=== PATIENT | female | born 1975 | race Caucasian/White ===

== ENCOUNTER 2025-02-13 10:23 | Emergency (ER) | payer OTHER ==
[~2025-02-13] VITALS: Ht 170.2 cm; Wt 59.0 kg
[2025-02-13 10:26] VITALS: O2SAT 98
[2025-02-13] MEDS: ACETAMINOPHEN 1000MG/100ML 100 ML IV ONE (11:45)
[2025-02-13] MEDS: LACTATED RINGERS 1,000 ML IV SCH (11:45)
[2025-02-13] MEDS: ONDANSETRON HCL 4MG/2ML INJ IV ONE (11:45)
[2025-02-13 12:08] LABS: HEMATOCRIT. 42.9 % (36.0-48.0); HEMOGLOBIN. 14.0 g/dL (12.0-16.0); MEAN PLATELET VOLUME 8.3 fl (7.4-10.4); PLATELET 267 x1000/uL (130-400); RED BLOOD CELL COUNT 5.15 mill/uL (4.2-5.4); RED CELL DISTRIBUTION WIDTH 14.1 % (11.6-14.6)
[2025-02-13 12:20] LABS: HCG SCREEN NEGATIVE
[2025-02-13 12:51] LABS: CREATININE 0.8 mg/dL (0.6-1.0); UREA NITROGEN BLOOD 10 mg/dL (9-23)
[2025-02-13 12:52] LABS: PROTEIN TOTAL 7.2 g/dL (6.0-8.3)
[2025-02-13 12:53] LABS: ASPARTATE AMINOTRANSFERASE 33 IU/L (<34); BILIRUBIN DIRECT 0.3 mg/dL (<=3.0); BILIRUBIN TOTAL 1.5 mg/dL (0.1-1.0)
[2025-02-13 13:32] LABS: BAND% 2.0 % (1.0-6.0); LYMPHOCYTES % MANUAL 2.0 % (20.0-60.0); MONOCYTES % MANUAL 4.0 % (2.0-8.0); NEUTROPHILS % MANUAL 92.0 % (45.0-75.0); PLATELET ESTIMATE NORMAL
[2025-02-13] MEDS ORDERED: ONDA-239 PO (14:34)
[2025-02-13 14:50] VITALS: BP 132/74; PULSE 98; RESP 18; TEMP 37.1; O2SAT 98
== END 2025-02-13 15:02 | disposition home or self-care (01) ==
LOC: ER 12:13
DX: R10.31 Right lower quadrant pain (principal); R11.2 Nausea with vomiting, unspecified; J44.9 Chronic obstructive pulmonary disease, unspecified; F41.9 Anxiety disorder, unspecified
CPT/HCPCS: 99285; 74176; 96365; 96375; 80076; 80048; 84703; 83690; 85025; 36415; 93005; J2405; J0131